=== PATIENT | female | born 1955 | race Caucasian/White ===

== ENCOUNTER 2020-04-04 08:52 | Outpatient (CLI) | payer BC, SELFPAY ==
--- NOTE | ~2020-04-04 | DEXA_ITS ---
Bone Density Report Name: Stephanie Pagan Age: 64 Sex: Female Ethnicity: White Date of : 1955 Indication: postmenopausal osteoporosis; monitoring treatment; height loss; inflammatory bowel disease; Referring Provider: MARIANELA GUTIÉRREZ Study: Bone densitometry was performed. Exam Date: April 04, 2020 Accession number: [id number] Bone Density: Region BMD T-score Z-score Classification AP Spine (L1-L4) 0.728 -2.9 -1.2 Osteoporosis Femoral Neck (Left) 0.567 -2.5 -1.1 Osteoporosis Total Hip (Left) 0.699 -2.0 -0.8 Osteopenia Total Hip Bilateral Avg 0.729 -1.8 -0.6 Osteopenia Femoral Neck (Right) 0.587 -2.4 -0.9 Osteopenia Total Hip (Right) 0.757 -1.5 -0.3 Osteopenia World Health Organization criteria for BMD impression classify patients as: Normal (T-score at or above -1.0), Osteopenia (T-score between -1.0 and -2.5), or Osteoporosis (T-score at or below -2.5). 10-year Fracture Risk: FRAX not reported because: Some T-score for Spine Total or Hip Total or Femoral Neck at or below -2.5 Treated for osteoporosis Previous Exams: Region Exam Age BMD T-score BMD Change BMD Change Date g/cm2 vs Baseline vs Previous AP Spine(L1-L4) 04/04/2020 64 0.728 -2.9 -0.196(-21.3%) -0.026(-3.4%)* 02/13/2018 62 0.754 -2.7 -0.171(-18.5%) 0.055(7.8%)* 02/07/2016 60 0.699 -3.2 -0.226(-24.4%) -0.147(-17.4%) 12/13/2011 56 0.846 -1.8 -0.078(-8.4%)# -0.092(-9.8%)# 11/23/2009 53 0.938 -1.0 0.014(1.5%) -0.017(-1.8%) 12/17/2007 52 0.956 -0.8 0.031(3.4%)* 0.031(3.4%)* 11/26/2006 50 0.924 -1.1 Total Hip(Left) 04/04/2020 64 0.699 -2.0 -0.007(-0.9%)# -0.066(-8.6%)* 02/13/2018 62 0.765 -1.5 0.059(8.4%)# 0.098(14.8%)* 02/07/2016 60 0.667 -2.3 -0.039(-5.6%)# -0.082(-10.9%) 12/13/2011 56 0.748 -1.6 0.042(6.0%)# 0.014(2.0%)# 11/23/2009 53 0.734 -1.7 0.028(3.9%)* 0.029(4.1%)* 12/17/2007 52 0.705 -1.9 -0.001(-0.1%) -0.001(-0.1%) 11/26/2006 50 0.706 -1.9 Total Hip(Right) 04/04/2020 64 0.757 -1.5 0.030(4.1%)# 0.005(0.6%) 02/13/2018 62 0.752 -1.6 0.025(3.5%)# 0.035(4.9%)* 02/07/2016 60 0.717 -1.8 -0.010(-1.3%)# -0.085(-10.6%) 12/13/2011 56 0.802 -1.1 0.075(10.4%)# 0.060(8.1%)# 11/23/2009 53 0.742 -1.6 0.015(2.1%) 0.005(0.7%) 12/17/2007 52 0.737 -1.7 0.010(1.4%) 0.010(1.4%) 11/26/2006 50 0.727 -1.8 *Denotes significance at 95% confidence level, LSC for AP Spine = 0.022 g/cm2, LSC for Total Hip = 0.027 g/cm2 Clinical Information Provided
--- NOTE | ~2020-04-04 | MM_ITS ---
EXAMINATION: MM screening [facility] BI w main HISTORY: Screening mammogram TECHNIQUE: Craniocaudal and mediolateral oblique 3-D tomosynthesis images were obtained and synthetic 2-D images were generated. CAD analysis was submitted and interpreted. COMPARISON: 02/18/2019, 02/13/2018, 02/08/2017 BREAST PARENCHYMAL COMPOSITION: The breasts are heterogeneously dense, which may obscure small masses . FINDINGS: There is no evidence of suspicious mass, calcification, or architectural distortion to sugg est malignancy in either breast. There has been no suspicious interval change. IMPRESSION: 1. No mammographic evidence of malignancy. 2. Recommend routine screening mammography in one year. BI-RADS Category 1: Negative Reviewed, dictated and finalized at location A.
== END 2020-04-04 08:53 | disposition home or self-care (01) ==
PROVIDERS: PCP Internal Medicine; Visit Provider Obstetrics & Gynecology Gynecology
DX: Z12.31 Encounter for screening mammogram for malignant neoplasm of breast (principal); M81.0 Age-related osteoporosis without current pathological fracture; Z78.0 Asymptomatic menopausal state; M85.852 Other specified disorders of bone density and structure, left thigh; M85.851 Other specified disorders of bone density and structure, right thigh
CPT/HCPCS: 77063; 77067; 77080

== ENCOUNTER 2020-05-10 00:51 | Outpatient (CLI) | payer BC, SELFPAY ==
[2020-05-10 18:53] LABS: SARS-CoV-2 RNA PCR Negative
== END 2020-05-10 00:52 | disposition home or self-care (01) ==
LOC: ANHCOVIDDT 00:54
PROVIDERS: PCP Internal Medicine; Visit Provider Internal Medicine Gastroenterology
DX: Z01.812 Encounter for preprocedural laboratory examination (principal); Z20.828 Contact with and (suspected) exposure to other viral communicable diseases
CPT/HCPCS: 87635; C9803; U0003

== ENCOUNTER 2020-05-12 00:27 | Day surgery (SDC) | payer BC, SELFPAY ==
[2020-05-04 14:01] VITALS: BMI 20.9
[2020-05-12 06:35] VITALS: BP 122/80; PULSE 84; RESP 16; TEMP 36.9; O2SAT 98
[2020-05-12] MEDS: LACTATED RINGERS 1,000 ML 150 ML IV CONT (07:06)
--- NOTE | 2020-05-12 07:15 | WPDANESEPPF ---
Anes - Initial Pre Proc Eval Procedure: Operation Date: 05/12/20 07:30 Proposed Procedures p Colonoscopy - Buddy Valencia MD Date/Time: 05/12/20 07:15 Surgeon: Buddy Valencia MD Pre Op Diagnosis: Chrohns disease Patient Data Age: 64 Gender: F Height: 5 ft 6 in Weight: 58.8 kg Last Vital Signs Temp 98.4 F 05/12/20 06:35 Pulse 84 05/12/20 06:35 Resp 16 05/12/20 06:35 BP 122/80 05/12/20 06:35 Pulse Ox 98 05/12/20 06:35 Allergies Allergy/AdvReac Type Severity Reaction Status Date / Time codeine Allergy Unknown Swelling Verified 05/12/20 06:32 Home Medications Medication Instructions Recorded Confirmed Type cholecalciferol (vitamin D3) 5,000 unit PO DAILY 05/04/20 05/04/20 History [Vitamin D3] denosumab [Prolia] 60 mg SUBCUT [id number] 05/04/20 05/04/20 History trazodone 50 mg PO DAILY 05/04/20 05/12/20 History Patient hx anesthesia problems: none Family hx anesthesia problems: none PMFSH Past Medical History Medical History (Updated 05/12/20 @ 07:12 by Bill Lantigua MD) Anemia Anxiety Crohn's disease Family History Family History (Updated 01/13/19 @ 08:29 by DOCTOR UNKNOWN) Mother Family history of rheumatoid arthritis Family history of thyroid disease Family history of malignant neoplasm of cervix Father Family history of chronic obstructive pulmonary disease Family history of coronary artery disease Family history of lung disease Grandparent Family history of malignant neoplasm of stomach Social History Social History Smoking status: Never smoker Alcohol intake: current Gender identity (if verbalized by the patient): Female Anes - Eval Final PreProcedure Day of Procedure 05/12/20 07:15 Patient weight: normal Heart: regular rate and rhythm Lungs: clear to auscultation Airway: Mallampati scale class II Neurological: alert and oriented Last oral intake: >/= 8 hours ASA classification: II Emergent: no Anesthetic plan: proceed Anesthesia type and monitoring: general GIVS and standard monitoring Informed Consent: The patient's anesthetic plan and its attendant risks and benefits were discussed with the patient/family/POA. Questions were solicited and answers provided to the satisfaction of the patient/family/POA.
--- NOTE | 2020-05-12 07:28 | P.CONGI_ITS ---
Assessment and Plan Assessment and plan (1) Crohn's disease: Code(s): K50.90 - Crohn's disease, unspecified, without complications Status: Acute Assessment and Plan: Patient has a history of Crohn's disease. Currently asymptomatic. She has a history of a terminal ileal resection. Plan is been for patient have a surveillance colonoscopy every 5 years. Colonoscopy will be performed at this time. Further recommendations after endoscopy. GI Consult Note Consult date/time: 05/12/20 07:28 HPI: Stephanie Pagan is a 64 year old female Seen in evaluation at the request of Dr. Aparicio and Dr Arriola. Patient presents for screening colonoscopy. Patient has a history of Crohn's disease. Dating back many years. She has a history of a terminal ileal resection because of phlegmon in this area. She has done well since that time. All currently on no medications. She states her weight appetite bowel movements are normal. She did have a brief 10 day episode of right lower quadrant abdominal pain that occurred a month or 2 ago. Has completely resolved with no medications. Her family history is noncontributory. She denies abdominal pain. She has no blood in her stools. Currently her bowel habits are normal. Review of Systems Review of Systems: All systems reviewed & are unremarkable except as noted in HPI and below PMFSH Past Medical History Medical History Anemia Anxiety Crohn's disease Family History Family History Mother Family history of rheumatoid arthritis Family history of thyroid disease Family history of malignant neoplasm of cervix Father Family history of chronic obstructive pulmonary disease Family history of coronary artery disease Family history of lung disease Grandparent Family history of malignant neoplasm of stomach Social History Social History Smoking status: Never smoker Alcohol intake: current Gender identity (if verbalized by the patient): Female Meds Home Medications and Allergies Home Medications Medication Instructions Recorded Confirmed Type cholecalciferol (vitamin D3) 5,000 unit PO DAILY 05/04/20 05/04/20 History [Vitamin D3] denosumab [Prolia] 60 mg SUBCUT [id number] 05/04/20 05/04/20 History trazodone 50 mg PO DAILY 05/04/20 05/12/20 History Allergies Allergy/AdvReac Type Severity Reaction Status Date / Time codeine Allergy Unknown Swelling Verified 05/12/20 06:32 Vital Signs Vital Signs - 24 hr 05/12/20 06:35 Temperature 98.4 F Pulse Rate 84 Respiratory Rate 16 Blood Pressure 122/80 Pulse Oximetry 98 Exam Narrative: Exam Narrative: Physical exam reveals patient to be alert. Vital signs stable. HEENT exam unremarkable. Lungs are clear to auscultation and percussion. Heart is without murmur or extra sounds. Abdominal exam bowel sounds are present soft nontender with no organomegaly no masses are noted well- healed scar. Digital external rectal exam normal.
[2020-05-12 07:55] VITALS: BP 91/58; PULSE 71; RESP 16; O2SAT 100
[2020-05-12 08:05] VITALS: BP 99/64; PULSE 66; RESP 18; O2SAT 99
[2020-05-12 08:15] VITALS: BP 114/73; PULSE 68; RESP 20; O2SAT 100
== END 2020-05-12 08:27 | disposition home or self-care (01) ==
PROVIDERS: Visit Provider Internal Medicine Gastroenterology
PROC: 0DJD8ZZ Inspection of Lower Intestinal Tract, Via Natural or Artificial Opening Endoscopic (ICD-10-PCS; CPT 45378; principal; 2020-05-12 07:30)
DX: Z12.11 Encounter for screening for malignant neoplasm of colon (principal); K64.8 Other hemorrhoids; K50.90 Crohn's disease, unspecified, without complications; D64.9 Anemia, unspecified; F41.9 Anxiety disorder, unspecified
CPT/HCPCS: 45378; J2704; J7120

== ENCOUNTER 2022-05-14 08:28 | Emergency (ER) | payer MEDICARE, OTHER, SELFPAY ==
--- NOTE | ~2022-05-14 | XR_ITS ---
EXAMINATION: XR hand LT min 3V, XR wrist LT min 3V DATE: 05/14/2022 08:53 INDICATION: Left hand and wrist pain post fall TECHNIQUE: 1. Posteroanterior, ulnar deviation, oblique, and lateral views of the left wrist were obtained. 2. Dorsal palmar, oblique and lateral views of the left hand were obtained. COMPARISON: None. FINDINGS: Diffuse osteopenia. Small nondisplaced volar plate avulsion fracture at the base of the left third mi ddle phalanx with associated soft tissue swelling about the proximal interphalangeal joint. No other fractures identified Alignment of the hand and wrist is otherwise normal. Minimal to mild osteoarthri tis at the radial aspect of the carpus and a few of the metacarpophalangeal and interphalangeal joint s. IMPRESSION: 1. Nondisplaced small volar plate avulsion fracture at the base of the left third middle phalanx. Reviewed, dictated and finalized at location A. IMPRESSION: 1. Nondisplaced small volar plate avulsion fracture at the base of the left thi rd middle phalanx.
[2022-05-14 08:30] VITALS: BP 154/68; PULSE 73; RESP 20; TEMP 36.5; O2SAT 100
[2022-05-14] MEDS: ACETAMINOPHEN 500 MG TABLET 1000 MG PO (09:16)
--- NOTE | 2022-05-14 09:17 | ED.FALL ---
HPI - Fall General Chief Complaint: Fall Stated Complaint: fall, wrist injury Time Seen by Provider: 05/14/22 08:47 Source: RN notes reviewed History of Present Illness HPI Narrative: Patient presents emergency department from home for left wrist and hand pain. Patient states that approximately an hour prior to arrival her dog had pulled her and caused her to fall she states she landed on her buttocks and had braced herself with her left hand but states pain in her left hand and wrist since that time she denies any other trauma or injury she denies striking her head or any loss of consciousness she denies any numbness or tingling to the extremities not taking thing for pain Related Data Home Medications Medication Instructions Recorded Confirmed cholecalciferol (vitamin D3) 125 5,000 unit PO DAILY 05/04/20 04/04/22 mcg (5,000 unit) tablet (Vitamin D3) trazodone 50 mg tablet 50 mg PO DAILY 05/04/20 04/04/22 estradiol 4 mcg vaginal insert 4 mcg vaginal .[id number] 10/03/20 04/04/22 zoledronic acid 5 mg/100 mL in 5 ea IV 10/03/20 04/04/22 mannitol 5 %-water intravenous piggybck (Reclast) calcium carbonate 500 mg calcium 500 mg PO DAILY 01/09/22 04/04/22 (1,250 mg) tablet Allergies Allergy/AdvReac Type Severity Reaction Status Date / Time codeine Allergy Unknown Swelling Verified 05/14/22 08:53 Review of Systems Review of Systems: Gen.: Denies fevers or chills ENT: Denies facial injury Respiratory: Denies shortness of breath CV: Denies chest pain GI: Denies abdominal pain nausea, emesis Musculoskeletal: see HPI Neuro: Denies headache or loss of consciousness Skin: Denies rash Except as documented, all other systems reviewed and negative [facility] Past Medical History Medical History Anemia Anxiety Broken toe 06/2020 Crohn's disease Insomnia Post-resection malabsorption 1999 Vitamin D deficiency Family History Family History Mother Family history of rheumatoid arthritis Family history of thyroid disease Family history of malignant neoplasm of cervix Father Family history of chronic obstructive pulmonary disease Family history of coronary artery disease Family history of lung disease Grandparent Family history of malignant neoplasm of stomach Social History Social History Smoking status: Never smoker Alcohol intake: current Drinks per week: 8 Alcohol use details: socially Substance use: never Gender identity (if verbalized by the patient): Female Spiritual care concerns: No Exam Narrative: APPEARANCE: No acute distress, nontoxic, resting in bed Eyes: EOMI HEENT: Normocephalic, atraumatic, RESPIRATORY: No respiratory distress MUSCULOSKELETAl: Tender to palpation diffusely over the left wrist pain with extension of the left wrist no pain of the dorsal hand pain over the third digit over the palmar aspect with mild swelling ecchymosis present full flexion-extension of all 5 MCP and IP joints, radial pulse 2+ neurovascular intact no tenderness of the left elbow or shoulder NEURO: Awake and alert. Following commands, speech normal, no focal deficits SKIN:: Warm, dry. Normal Color no rash or lesions Course Course Emergency Course: Discussed with patient results of workup and diagnosis. Discussed need for follow-up with primary care, proper use of medication, and reasons to return to the emergency department. Patient understands and agrees to current treatment plan Vital Signs Vital signs: Vital Signs Temperature 97.7 F 05/14/22 08:30 Pulse Rate 73 05/14/22 08:30 Respiratory Rate 20 05/14/22 08:30 Blood Pressure 154/68 H 05/14/22 08:30 Pulse Oximetry 100 05/14/22 08:30 Oxygen Delivery Room Air 05/14/22 08:30 Temperature 97.7 F 05/14/22 08:30 Pulse Rate 73 05/14/22 08:30 Respira
[2022-05-14 09:45] VITALS: BP 159/90; PULSE 74; RESP 18; O2SAT 99
--- NOTE | 2022-05-26 10:26 | PC.NURSE ---
LATE ENTRY This note is being entered to document information to the patient's record. The following information was omitted on [05/26/22], by [Jennifer Rice]. Metal finger splint applied to left middle finger. Pt tolerated the procedure without any difficulty, cap refill WNL.
== END 2022-05-14 09:27 | disposition home or self-care (01) ==
PROVIDERS: Emergency Provider Emergency Medicine; PCP Internal Medicine
DX: S62.613A Displaced fracture of proximal phalanx of left middle finger, initial encounter for closed fracture (principal); S63.502A Unspecified sprain of left wrist, initial encounter; D64.9 Anemia, unspecified; F41.9 Anxiety disorder, unspecified; W01.0XXA Fall on same level from slipping, tripping and stumbling without subsequent striking against object, initial encounter
CPT/HCPCS: 29130; 73110; 73130; 99284; A9270

== ENCOUNTER 2022-05-18 10:10 | Outpatient (CLI) | payer MEDICARE, OTHER, SELFPAY ==
--- NOTE | ~2022-05-18 | XR_ITS ---
EXAMINATION: XR wrist LT min 3V DATE: 05/18/2022 10:29 INDICATION: Left wrist pain TECHNIQUE: Posteroanterior, ulnar deviation, oblique, and lateral views of the left wrist were obtain ed. COMPARISON: 05/14/2022 FINDINGS: There is no fracture, dislocation, or subluxation. The bones, soft tissues, and joint space s are normal. IMPRESSION: 1. No acute osseous abnormality. Reviewed, dictated and finalized at location B.
--- NOTE | ~2022-05-18 | XR_ITS ---
EXAMINATION: XR hand LT min 3V INDICATION: Left third finger fracture, follow-up TECHNIQUE: Three views of the left hand are obtained. COMPARISON: 05/14/2022 FINDINGS: Again seen is an oblique intra-articular fracture at the palmar base of the third middle ph alanx involving less than 50% of the articular surface. No additional fracture is identified. There i s mild soft tissue swelling of the third finger without significant change. Mild osteoarthritis is no nirmal in multiple interphalangeal joints. IMPRESSION: 1. Unchanged volar plate avulsion at the base of the left third middle phalanx. Reviewed, dictated and finalized at location B.
== END 2022-05-18 10:11 | disposition home or self-care (01) ==
PROVIDERS: PCP Internal Medicine; Visit Provider Clinical Nurse Specialist
DX: S62.603D Fracture of unspecified phalanx of left middle finger, subsequent encounter for fracture with routine healing (principal); S63.502D Unspecified sprain of left wrist, subsequent encounter; X58.XXXD Exposure to other specified factors, subsequent encounter
CPT/HCPCS: 73110; 73130

== ENCOUNTER 2022-06-25 13:46 | Outpatient (CLI) | payer MEDICARE, OTHER, SELFPAY ==
--- NOTE | ~2022-06-25 | MM_ITS ---
EXAMINATION: MM screening [facility] BI w main HISTORY: Screening mammogram TECHNIQUE: Craniocaudal and mediolateral oblique 3-D tomosynthesis images were obtained and synthetic 2-D images were generated. CAD analysis was submitted and interpreted. COMPARISON: 04/04/2020, 02/18/2019, 02/13/2018 BREAST PARENCHYMAL COMPOSITION: The breasts are heterogeneously dense, which may obscure small masses . FINDINGS: There is no suspicious mass, calcification, or architectural distortion to suggest malignan cy in either breast. There has been no suspicious interval change. IMPRESSION: 1. No mammographic evidence of malignancy. 2. Recommend routine screening mammography in one year. BI-RADS Category 1: Negative Reviewed, dictated and finalized at location A.
--- NOTE | ~2022-06-25 | DEXA_ITS ---
Bone Density Report Name: LISA KANG Age: 66 Sex: Female Ethnicity: White Date of : 1955 Indication: postmenopausal osteoporosis; monitoring treatment; inflammatory bowel disease; Referring Provider: MARIANELA GUTIÉRREZ Study: Bone densitometry was performed. Exam Date: June 25, 2022 Accession number: [id number] Bone Density: Region BMD T-score Z-score Classification AP Spine(L1-L4) 0.761 -2.6 -0.7 Osteoporosis Femoral Neck (Left) 0.586 -2.4 -0.8 Osteopenia Total Hip (Left) 0.681 -2.1 -0.8 Osteopenia Femoral Neck (Right) 0.615 -2.1 -0.5 Osteopenia Total Hip (Right) 0.705 -1.9 -0.6 Osteopenia Total Hip Mean 0.693 -2.0 -0.7 Osteopenia World Health Organization criteria for BMD impression classify patients as: Normal (T-score at or above -1.0), Osteopenia (T-score between -1.0 and -2.5), or Osteoporosis (T-score at or below -2.5). 10-year Fracture Risk: FRAX not reported because: Some T-score for Spine Total or Hip Total or Femoral Neck at or below -2.5 Treated for osteoporosis Previous Exams: Region Exam Age BMD T-score BMD Change BMD Change Date g/cm2 vs Baseline vs Previous AP Spine (L1-L4) 06/25/2022 66 0.761 -2.6 -0.086 (-10.1% 0.033 (4.5%)* 04/04/2020 64 0.728 -2.9 -0.118 (-14.0% -0.026 (-3.4%) 02/13/2018 62 0.754 -2.7 -0.093 (-11.0% 0.055 (7.8%)* 02/07/2016 60 0.699 -3.2 -0.147 (-17.4% -0.147 (-17.4% 12/13/2011 56 0.846 -1.8 Total Hip(Left) 06/25/2022 66 0.681 -2.1 -0.067 (-9.0%) -0.018 (-2.6%) 04/04/2020 64 0.699 -2.0 -0.049 (-6.5%) -0.066 (-8.6%) 02/13/2018 62 0.765 -1.5 0.017 (2.3%)# 0.098 (14.8%)* 02/07/2016 60 0.667 -2.3 -0.082 (-10.9% -0.082 (-10.9% 12/13/2011 56 0.748 -1.6 Total Hip(Right) 06/25/2022 66 0.705 -1.9 -0.097 (-12.1% -0.052 (-6.9%) 04/04/2020 64 0.757 -1.5 -0.045 (-5.6%) 0.005 (0.6%) 02/13/2018 62 0.752 -1.6 -0.050 (-6.2%) 0.035 (4.9%)* 02/07/2016 60 0.717 -1.8 -0.085 (-10.6% -0.085 (-10.6% 12/13/2011 56 0.802 -1.1 *Denotes significance at 95% confidence level, LSC for AP Spine = 0.022 g/cm2, LSC for Total Hip = 0.027 g/cm2 # Denotes dissimilar scan types or analysis methods Clinical Information Provided by Patient: Is being treated for osteoporosis Has used the following medications: Reclast (i.e. zoledronate), Vitamin D Has the following medical conditions: Inflammatory bowel diseases, crohns Patient maximum height was 66 Menopause Age: 58 No regular william
== END 2022-06-25 13:47 | disposition home or self-care (01) ==
LOC: ANHIMG 13:47
PROVIDERS: PCP Internal Medicine; Visit Provider Obstetrics & Gynecology Gynecology
DX: Z12.31 Encounter for screening mammogram for malignant neoplasm of breast (principal); Z78.0 Asymptomatic menopausal state; M81.0 Age-related osteoporosis without current pathological fracture; M85.852 Other specified disorders of bone density and structure, left thigh; M85.851 Other specified disorders of bone density and structure, right thigh
CPT/HCPCS: 77063; 77067; 77080

== ENCOUNTER → 2023-01-17 07:58 | Outpatient (CLI) | payer MEDICARE, OTHER, SELFPAY ==
--- NOTE | ~2023-01-17 | XR_ITS ---
AP and lateral views of the right hip Clinical history: Pain Findings: No acute fracture or dislocation is seen. Osseous alignment is anatomic. The right hip join t and right SI joint are preserved. Soft tissues are unremarkable. Impression: No significant abnormality is seen. Reviewed, dictated and finalized at location . Impression: No significant abnormality is seen.
== END ==
PROVIDERS: PCP Internal Medicine; Visit Provider Clinical Nurse Specialist
DX: M25.551 Pain in right hip (principal)
CPT/HCPCS: 73502

== ENCOUNTER 2023-01-24 06:36 | Outpatient (CLI) | payer MEDICARE, OTHER, SELFPAY ==
--- NOTE | ~2023-01-24 | MR_ITS ---
MRI of the right hip Clinical history: Pain Technique: Coronal T1-weighted, T2-weighted, and proton-density fat-sat images, and axial T1-weighted and proton-density fat-sat images were acquired through the pelvis. Coronal T2-weighted images and c oronal, axial, and sagittal proton-density fat-sat images were acquired through the right hip. Findings: There is no fracture, avascular necrosis, transient suppresses of either hip. Bone marrow s ignals in the proximal femora and visualized pelvic bones are unremarkable. Bilateral hip and SI join t spaces are intact. No joint effusion identified. No right acetabular labral tear identified. Visualized musculature about the pelvis and right hip is unremarkable. No muscle atrophy or edema trent ntified. Visualized tendons are intact. No soft tissue mass or fluid collection seen. No evidence for bursitis. IMPRESSION: No significant abnormality seen. Reviewed, dictated and finalized at [facility].
== END 2023-01-24 06:37 | disposition home or self-care (01) ==
PROVIDERS: PCP Internal Medicine; Visit Provider Clinical Nurse Specialist
DX: M25.551 Pain in right hip (principal)
CPT/HCPCS: 73721

== ENCOUNTER 2023-05-07 13:47 | Emergency (ER) | payer MEDICARE, OTHER, SELFPAY ==
--- NOTE | ~2023-05-07 | XR_ITS ---
EXAMINATION: XR shoulder RT min 2V INDICATION: Right shoulder pain TECHNIQUE: Four views of the right shoulder are submitted. COMPARISON: None FINDINGS: Normal alignment. No fracture. Glenohumeral and acromioclavicular joint spaces are normal. Soft tissues are unremarkable. IMPRESSION: 1. No acute osseous abnormality. Reviewed, dictated and finalized at location L.
--- NOTE | ~2023-05-07 | XR_ITS ---
EXAMINATION: [id number] INDICATION: Right chest pain TECHNIQUE: A frontal view of the chest and 3 views of the right ribs were obtained. COMPARISON: None. FINDINGS: The lungs are free of acute opacities. No pleural effusion or pneumothorax. There is symmet supriya scarring of the lung apices. No pleural effusion or pneumothorax. No displaced rib fracture is id entified. IMPRESSION: 1. No acute cardiopulmonary abnormality or evidence of displaced rib fracture. Reviewed, dictated and finalized at location L.
--- NOTE | 2023-05-07 13:49 | ED.GENADULT ---
HPI - General Adult General Chief complaint: Fall Stated complaint: Fall Time Seen by Provider: 05/07/23 14:01 Source: patient, RN notes reviewed and old records reviewed Mode of arrival: ambulatory Limitations: no limitations History of Present Illness HPI narrative: 67-year-old female presents to the [facility] after falling on Saturday, 3 days ago. States she was having right shoulder pain but the pain is still radiating into the right rib area. Has been taken ibuprofen. No bruising or swelling noted to the rib area or to the generalized shoulder. States that she was walking in flip-flops when she tripped. Denied hitting head. No loss of consciousness. No midline tenderness. Onset (ago): day(s) (3) Related Data Home Medications Medication Instructions Recorded Confirmed cholecalciferol (vitamin D3) 125 5,000 unit PO DAILY 05/04/20 05/07/23 mcg (5,000 unit) tablet (Vitamin D3) estradiol 4 mcg vaginal insert 4 mcg vaginal .[id number] 10/03/20 05/07/23 zoledronic acid 5 mg/100 mL in 5 ea IV .YEARLY 10/03/20 05/07/23 mannitol 5 %-water intravenous piggybck (Reclast) trazodone 50 mg tablet 100 mg PO DAILY 05/16/22 05/07/23 loratadine 10 mg tablet 10 mg PO DAILY 01/17/23 05/07/23 Allergies Allergy/AdvReac Type Severity Reaction Status Date / Time codeine Allergy Unknown Swelling Verified 05/07/23 14:01 Review of Systems Review of Systems: All systems reviewed & are unremarkable except as noted in HPI and below Constitutional: Constitutional: Reports no additional constitutional complaints Eyes: Eyes: Reports no additional eye complaints ENT: Reports system reviewed and no additional complaints, except as documented Cardiovascular: Cardiovascular: Reports no additional cardiovascular complaints, Denies chest pain and Denies dyspnea Respiratory: Respiratory: Reports no additional respiratory complaints, Denies chest congestion, Denies cough and Denies dyspnea Gastrointestinal: Gastrointestinal: Reports no additional gastrointestinal complaints, Denies abdominal pain, Denies nausea and Denies vomiting Musculoskeletal: Musculoskeletal: Reports as per HPI Integumentary/Breasts: Skin/Breast: Reports system reviewed and no additional complaints, except as docu Neurologic: Reports system reviewed and no additional complaints, except as documented Psychiatric: Psychiatric: Reports no additional psychiatric complaints Allergic/Immunologic: Allergic/Immunologic: Reports no additional allergic/immunologic complaints [facility] Past Medical History Medical History Anemia Anxiety Broken toe 06/2020 Crohn's disease Insomnia Post-resection malabsorption 1999 Vitamin D deficiency Family History Family History Mother Family history of rheumatoid arthritis Family history of thyroid disease Family history of malignant neoplasm of cervix Father Family history of chronic obstructive pulmonary disease Family history of coronary artery disease Family history of lung disease Grandparent Family history of malignant neoplasm of stomach Social History Social History Smoking status: Never smoker Alcohol intake: current Drinks per week: 8 Alcohol use details: socially Substance use: never Lack of Transportation: No Lack of Food: Never True Current Housing: I Have Housing Concerned About Future Housing: No Difficulty Paying Gas/Electric Bills: No Difficulty Paying for Meds: No Currently Unemployed: No Education: High School Diploma/GED Difficulty w/ Childcare or Family Care: No Gender identity (if verbalized by the patient): Female Spiritual care concerns: No Comments At the time of my signature, I reviewed and agree with the nursing past medical, surgical, social, and family history. There is no relevant family
[2023-05-07 14:01] VITALS: BP 166/80; PULSE 69; RESP 16; TEMP 37.1; O2SAT 100
[2023-05-07 14:02] VITALS: BP 166/80; PULSE 69; RESP 16; TEMP 37.1; O2SAT 100
== END 2023-05-07 14:50 | disposition home or self-care (01) ==
PROVIDERS: Emergency Provider Nurse Practitioner; PCP Internal Medicine
DX: M25.511 Pain in right shoulder (principal); R07.81 Pleurodynia; W01.0XXA Fall on same level from slipping, tripping and stumbling without subsequent striking against object, initial encounter; K50.90 Crohn's disease, unspecified, without complications; E55.9 Vitamin D deficiency, unspecified
CPT/HCPCS: 71101; 73030; 99214; G0463

== ENCOUNTER 2023-07-30 08:45 | Outpatient (CLI) | payer MEDICARE, OTHER, SELFPAY ==
--- NOTE | ~2023-07-30 | MM_ITS ---
EXAMINATION: MM screening pedro BI w main HISTORY: Screening TECHNIQUE: Craniocaudal and mediolateral oblique 3-D tomosynthesis images were obtained and synthetic 2-D images were generated. CAD analysis was submitted and interpreted. COMPARISON: Comparison to multiple prior studies sequentially, with oldest reviewed study dated 02/06. BREAST PARENCHYMAL COMPOSITION: The breasts are heterogeneously dense, which may obscure small masses FINDINGS: There is no evidence of suspicious mass, calcification, or architectural distortion to sugg est malignancy in either breast. There has been no suspicious interval change. IMPRESSION: 1. No mammographic evidence of malignancy. 2. Recommend routine screening mammography in one year. BI-RADS Category 1: Negative Reviewed, dictated and finalized at location A. ED FRUIT PACKER
== END 2023-07-30 08:46 | disposition home or self-care (01) ==
LOC: ANHIMG 08:47
PROVIDERS: PCP Internal Medicine; Visit Provider Obstetrics & Gynecology Gynecology
DX: Z12.31 Encounter for screening mammogram for malignant neoplasm of breast (principal)
CPT/HCPCS: 77063; 77067

== ENCOUNTER 2023-09-06 13:55 | Outpatient (CLI) | payer MEDICARE, OTHER, SELFPAY ==
--- NOTE | ~2023-09-06 | DEXA_ITS ---
Bone Density Report Name: LISA KANG Age: 67 Sex: Female Ethnicity: White Date of : 1955 Indication: postmenopausal osteoporosis; monitoring treatment; inflammatory bowel disease; Referring Provider: MARIANELA GUTÉIRREZ Study: Bone densitometry was performed. Exam Date: September 06, 2023 Accession number: [id number] Bone Density: Region BMD T-score Z-score Classification AP Spine(L1-L4) 0.773 -2.5 -0.5 Osteoporosis Femoral Neck (Left) 0.625 -2.0 -0.4 Osteopenia Total Hip (Left) 0.680 -2.1 -0.8 Osteopenia Femoral Neck (Right) 0.625 -2.0 -0.4 Osteopenia Total Hip (Right) 0.728 -1.8 -0.4 Osteopenia Total Hip Mean 0.704 -2.0 -0.6 Osteopenia World Health Organization criteria for BMD impression classify patients as: Normal (T-score at or above -1.0), Osteopenia (T-score between -1.0 and -2.5), or Osteoporosis (T-score at or below -2.5). 10-year Fracture Risk: FRAX not reported because: Some T-score for Spine Total or Hip Total or Femoral Neck at or below -2.5 Treated for osteoporosis Previous Exams: Region Exam Age BMD T-score BMD Change BMD Change Date g/cm2 vs Baseline vs Previous AP Spine (L1-L4) 09/06/2023 67 0.773 -2.5 -0.073 (-8.6%) 0.012 (1.6%) 06/25/2022 66 0.761 -2.6 -0.086 (-10.1% 0.033 (4.5%)* 04/04/2020 64 0.728 -2.9 -0.118 (-14.0% -0.026 (-3.4%) 02/13/2018 62 0.754 -2.7 -0.093 (-11.0% 0.055 (7.8%)* 02/07/2016 60 0.699 -3.2 -0.147 (-17.4% -0.147 (-17.4% 12/13/2011 56 0.846 -1.8 Total Hip(Left) 09/06/2023 67 0.680 -2.1 -0.068 (-9.1%) -0.001 (-0.1%) 06/25/2022 66 0.681 -2.1 -0.067 (-9.0%) -0.018 (-2.6%) 04/04/2020 64 0.699 -2.0 -0.049 (-6.5%) -0.066 (-8.6%) 02/13/2018 62 0.765 -1.5 0.017 (2.3%)# 0.098 (14.8%)* 02/07/2016 60 0.667 -2.3 -0.082 (-10.9% -0.082 (-10.9% 12/13/2011 56 0.748 -1.6 Total Hip(Right) 09/06/2023 67 0.728 -1.8 -0.074 (-9.3%) 0.023 (3.3%) 06/25/2022 66 0.705 -1.9 -0.097 (-12.1% -0.052 (-6.9%) 04/04/2020 64 0.757 -1.5 -0.045 (-5.6%) 0.005 (0.6%) 02/13/2018 62 0.752 -1.6 -0.050 (-6.2%) 0.035 (4.9%)* 02/07/2016 60 0.717 -1.8 -0.085 (-10.6% -0.085 (-10.6% 12/13/2011 56 0.802 -1.1 *Denotes significance at 95% confidence level, LSC for AP Spine = 0.022 g/cm2, LSC for Total Hip = 0.027 g/cm2 # Denotes dissimilar scan types or analysis methods Clinical Information Provided by Patient: Is being treated for osteoporosis Has used the following jamila
== END 2023-09-06 13:56 | disposition home or self-care (01) ==
LOC: ANHIMG 13:57
PROVIDERS: PCP Internal Medicine; Visit Provider Obstetrics & Gynecology Gynecology
DX: M81.0 Age-related osteoporosis without current pathological fracture (principal); Z78.0 Asymptomatic menopausal state
CPT/HCPCS: 77080

== ENCOUNTER 2024-08-24 14:01 | Outpatient (CLI) | payer MEDICARE, OTHER, SELFPAY ==
--- NOTE | ~2024-08-24 | MM_ITS ---
EXAMINATION: MM screening pedro BI w main HISTORY: Screening TECHNIQUE: Craniocaudal and mediolateral oblique 3-D tomosynthesis images were obtained and synthetic 2-D images were generated. CAD analysis was submitted and interpreted. COMPARISON: Comparison to multiple prior studies sequentially, with oldest reviewed study dated 02/08. BREAST PARENCHYMAL COMPOSITION: Dense: The breasts are heterogeneously dense, which may obscure small masses FINDINGS: There is no evidence of suspicious mass, calcification, or architectural distortion to sugg est malignancy in either breast. There has been no suspicious interval change. IMPRESSION: 1. No mammographic evidence of malignancy. 2. Recommend routine screening mammography in one year. BI-RADS Category 1: Negative Reviewed, dictated and finalized at location B. STANT EDUCATION DIRECTOR
== END 2024-08-24 14:02 | disposition home or self-care (01) ==
LOC: ANHIMG 14:03
PROVIDERS: PCP Internal Medicine; Visit Provider Obstetrics & Gynecology Gynecology
DX: Z12.31 Encounter for screening mammogram for malignant neoplasm of breast (principal)
CPT/HCPCS: 77063; 77067

== ENCOUNTER 2025-09-07 08:10 | Outpatient (CLI) | payer MEDICARE, OTHER, SELFPAY ==
--- NOTE | ~2025-09-07 | DEXA_ITS ---
Bone Density Report Name: LISA KANG Age: 69 Sex: Female Ethnicity: White Date of : 1955 Indication: postmenopausal osteoporosis; monitoring treatment; height loss; inflammatory bowel disease; history of glucocorticoids; Referring Provider: MARIANELA GUTIÉRREZ Study: Bone densitometry was performed. Exam Date: September 07, 2025 Accession number: [id number] Bone Density: Region BMD T-score Z-score Classification AP Spine(L1-L4) 0.755 -2.7 -0.6 Osteoporosis Femoral Neck (Left) 0.593 -2.3 -0.5 Osteopenia Total Hip (Left) 0.687 -2.1 -0.6 Osteopenia Femoral Neck (Right) 0.607 -2.2 -0.4 Osteopenia Total Hip (Right) 0.722 -1.8 -0.3 Osteopenia Total Hip Mean 0.704 -2.0 -0.5 Osteopenia World Health Organization criteria for BMD impression classify patients as: Normal (T-score at or above -1.0), Osteopenia (T-score between -1.0 and -2.5), or Osteoporosis (T-score at or below -2.5). 10-year Fracture Risk: FRAX not reported because: Some T-score for Spine Total or Hip Total or Femoral Neck at or below -2.5 Treated for osteoporosis Previous Exams: Region Exam Age BMD T-score BMD Change BMD Change Date g/cm2 vs Baseline vs Previous AP Spine (L1-L4) 09/07/2025 69 0.755 -2.7 -0.091 (-10.7% -0.018 (-2.3%) 09/06/2023 67 0.773 -2.5 -0.073 (-8.6%) 0.012 (1.6%) 06/25/2022 66 0.761 -2.6 -0.086 (-10.1% 0.033 (4.5%)* 04/04/2020 64 0.728 -2.9 -0.118 (-14.0% -0.026 (-3.4%) 02/13/2018 62 0.754 -2.7 -0.093 (-11.0% 0.055 (7.8%)* 02/07/2016 60 0.699 -3.2 -0.147 (-17.4% -0.147 (-17.4% 12/13/2011 56 0.846 -1.8 Total Hip(Left) 09/07/2025 69 0.687 -2.1 -0.062 (-8.2%) 0.006 (0.9%) 09/06/2023 67 0.680 -2.1 -0.068 (-9.1%) -0.001 (-0.1%) 06/25/2022 66 0.681 -2.1 -0.067 (-9.0%) -0.018 (-2.6%) 04/04/2020 64 0.699 -2.0 -0.049 (-6.5%) -0.066 (-8.6%) 02/13/2018 62 0.765 -1.5 0.017 (2.3%)# 0.098 (14.8%)* 02/07/2016 60 0.667 -2.3 -0.082 (-10.9% -0.082 (-10.9% 12/13/2011 56 0.748 -1.6 Total Hip(Right) 09/07/2025 69 0.722 -1.8 -0.080 (-10.0% -0.006 (-0.8%) 09/06/2023 67 0.728 -1.8 -0.074 (-9.3%) 0.023 (3.3%) 06/25/2022 66 0.705 -1.9 -0.097 (-12.1% -0.052 (-6.9%) 04/04/2020 64 0.757 -1.5 -0.045 (-5.6%) 0.005 (0.6%) 02/13/2018 62 0.752 -1.6 -0.050 (-6.2%) 0.035 (4.9%)* 02/07/2016 60 0.717 -1.8 -0.085 (-10.6% -0.085 (-10.6% 12/13/2011 56 0.802 -1.1 *Denotes significance at 95% confidence level, LSC for AP Spine = 0.022 g/cm2, LSC for Total Hip = 0.027 g/cm2 # Denotes dissimilar scan types or analysis methods Clinical Information Provided by Patient: Has taken Glucocorticoids Is being treated for osteoporosis Has used the following medications: Boniva (i.e. ibandronate), Reclast (i.e. zoledronate), Prolia (i.e. denosumab), Vitamin D Has the following medical conditions: Inflammatory bowel diseases, crohns Patient maximum height was 66 Menopause Age: 58 No regular weight bearing exercise Drinks caffeinated beverages Onset of menses at age 14 Number of children 5 Impression: The patient has osteoporosis, based on the Total Spine T-score. The patient has risk factors, including: history of glucocorticoid therapy. No significant bone loss was observed. Discussion: PATIENT UNDER TREATMENT WITH NO SIGNIFICANT BMD LOSS SINCE LAST EXAM. In an untreated patient, BMD typically declines with age. A lack of decline or gain is usually a sign that treatment is efficacious and fracture risk is reduced. It is important to ask patients whether they are taking their medications and to encourage continued and appropriate compliance with their osteoporosis therapies to reduce fracture risk. It is also important to review their risk factors and encourage appropriate calcium and vitamin D intakes, exercise, fall prevention and other lifestyle measures. Follow-Up: Consider a repeat BMD and Vertebral Fracture Assessment (VFA) exam in 2 years or sooner if medically necessary, to reassess this patient's status. Reported by: SIVA on 09/07/2025 9:01:00 AM. Reviewed, dictated and finalized at location A.
--- OUTSIDE RECORDS SUMMARY | 2025-09-07 08:30 | XMS_ITS | Clinical Summary ---
Author Organization [facility] Address [address] [place] [id number] Care Team Providers Care Crisis Clinician Name Role Phone Unavailable Primary Care Provider Unavailabl e Social History Tobacco Use Types Packs/Day Years Used Date Smoking Tobacco: Never Assessed Comments Unknown Sex and Gender Information Value Date Recorded Sex Assigned at Not on file Legal Sex Female 7:07 PM CDT Gender Identity Not on file Sexual Orientation Not on file Plan of Treatment Health Maintenance Due Date Last Done Comments Colorectal Cancer Screening Colonoscopy (10 Years) 1955 Hepatitis C 12/05/1973 DTaP, Tdap and Td Vaccines ( 1 - Tdap) 12/05/1974 Mammogram Screening 1995 Pneumococcal Vaccine: 50+ Ye ars (1 of 1 - PCV) 12/05/2005 Zoster Vaccines (1 of 2) 12/05/2005 Dexa Scan (General) 12/05/2020 COVID-19 Vaccine ( - 2024-2 6 season) 2025 Influenza Adult (#1) 2025 RSV Immunization or 60+ Years (1 - 1-dose 75+ series) 12/05/2030 Hepatitis A Vaccines Aged Out No long er eligible based on patient's age to complete this topic Meningococcal B Vaccine Aged Out No l onger eligible based on patient's age to complete this topic Meningococcal Vaccine Aged Out No kenia gustavo eligible based on patient's age to complete this topic RSV Immunizations Under 20 Months Aged Out No longer eligible based on patient's age to complete this topic
== END 2025-09-07 08:11 | disposition home or self-care (01) ==
LOC: ANHFOHIMG 08:14
PROVIDERS: PCP Internal Medicine; Visit Provider Obstetrics & Gynecology Gynecology
DX: M81.0 Age-related osteoporosis without current pathological fracture (principal); M85.89 Other specified disorders of bone density and structure, multiple sites; Z78.0 Asymptomatic menopausal state
CPT/HCPCS: 77080